=== PATIENT | female | born 1950 | race Caucasian/White ===

== ENCOUNTER 2020-03-19 22:52 | Inpatient (IN) | payer OTHER, MEDICARE ==
[~2020-03-19] VITALS: Ht 170.2 cm; Wt 45.4 kg
[2020-03-19 23:38] VITALS: BP 92/64
[2020-03-19] MEDS ORDERED: NACL 0.9% 1,000 ML IV SCH (23:55)
[2020-03-19] MEDS ORDERED: cefTRIAXone 1,000 MG in DEXT 5% MINI-BAG PLUS 50 ML IV ONE (23:55)
[2020-03-20] MEDS ORDERED: cefTRIAXone 1,000 MG VIAL ONE (01:30)
[2020-03-20] MEDS ORDERED: KETOROLAC 30 MG/ML VIAL ONE (01:51)
[2020-03-20 01:54] LABS: BASOPHILS % (AUTO) 0.2 % (0.0-2.0); EOSINOPHILS % (AUTO) 0.2 % (0.0-4.0); HEMATOCRIT 40.5 % (36-48); HEMOGLOBIN 13.2 g/dL (12.0-16.0); LYMPHOCYTES # (AUTO) 0.5 K/uL (2.5-16.5); LYMPHOCYTES % (AUTO) 2.7 % (20.5-51.1); MEAN CORPUSCULAR HEMOGLOBIN 26 pg (27-31); MEAN CORPUSCULAR HGB CONC 33 g/dL (33-37); MEAN CORPUSCULAR VOLUME 80.7 fL (80-94); MONOCYTES # (AUTO) 0.7 K/uL (0.8-1.0); MONOCYTES % (AUTO) 3.6 % (1.7-9.3); NEUTROPHILS # (AUTO) 18.8 K/uL (1.8-7.7); NEUTROPHILS % (AUTO) 93.3 % (42.2-75.2); PLATELET COUNT (AUTO) 116 K/uL (140-450); RED BLOOD CELL COUNT(AUTO) 5.02 MIL/uL (4.20-5.40); RED CELL DISTRIBUTION WIDTH 20.7 % (11.6-13.7); WHITE BLOOD COUNT (AUTO) 20.2 K/uL (4.8-10.8)
[2020-03-20] MEDS ORDERED: KETOROLAC 30 MG/ML VIAL IVP ONE (01:55)
[2020-03-20 02:29] LABS: ALBUMIN 1.3 g/dL (3.4-5.0); ANION GAP 12.4 (8-16); CARBON DIOXIDE 21.9 mmol/L (21-32); CREATININE 1.1 mg/dL (0.6-1.3); POTASSIUM 4.3 mmol/L (3.5-5.1); TOTAL BILIRUBIN 1.3 mg/dL (0.0-1.0)
[2020-03-20 03:13] LABS: APPEARANCE,URINE CLEAR (CLEAR); BILIRUBIN,URINE 1+ (NEGATIVE); BLOOD, URINE NEGATIVE (NEGATIVE); COLOR,URINE YELLOW (YELLOW); LEUKOCYTE ESTERASE ,URINE NEGATIVE (NEGATIVE); NITRITE, URINE NEGATIVE (NEGATIVE); PH,URINE 5.5 (5.0-9.0); UGLUCOSE NEGATIVE (NEGATIVE)
[2020-03-20] MEDS ORDERED: NACL 0.9% 1,000 ML IV ONE (03:50)
[2020-03-20] MEDS ORDERED: MORPHINE SULFATE 4 MG/ML SYR IVP ONE (03:50)
[2020-03-20] MEDS ORDERED: LORazepam 2 MG/ML VIAL IVP PRN (04:55)
[2020-03-20] MEDS ORDERED: ACETAMINOPHEN 325 MG TAB PO PRN (04:55)
[2020-03-20] MEDS ORDERED: ONDANSETRON 4 MG/2 ML VIAL IVP PRN (04:55)
[2020-03-20] MEDS ORDERED: cefTRIAXone 500 MG VIAL ONE (06:26)
[2020-03-20] MEDS: NACL 0.9% 1,000 ML IV SCH ×2 (06:50→17:16)
[2020-03-20 11:00] VITALS: BP 88/55
[2020-03-20] MEDS: HYDROcodone/APAP 5/325 MG 1 TAB TAB PO PRN ×2 (11:04→20:31)
[2020-03-20] MEDS: MORPHINE SULFATE 2 MG/ML SYR IVP PRN (11:41)
[2020-03-20 16:00] VITALS: BP 88/55
[2020-03-20] MEDS: AZITHROMYCIN 500 MG in DEXTROSE 5% 250 ML IV SCH (18:27)
[2020-03-20 20:00] VITALS: BP 123/67
[2020-03-20] MEDS ORDERED: AZITHROMYCIN 500 MG in DEXTROSE 5% 250 ML IV SCH (21:00)
[2020-03-21] MEDS: MORPHINE SULFATE 2 MG/ML SYR IVP PRN (00:39)
[2020-03-21] MEDS: NACL 0.9% 1,000 ML IV SCH ×2 (06:24→18:24)
[2020-03-21 08:00] VITALS: BP 100/58
[2020-03-21 08:41] LABS: BASOPHILS % (AUTO) 0.2 % (0.0-2.0); EOSINOPHILS % (AUTO) 0.1 % (0.0-4.0); HEMATOCRIT 41.6 % (36-48); HEMOGLOBIN 13.1 g/dL (12.0-16.0); LYMPHOCYTES % (AUTO) 3.9 % (20.5-51.1); MEAN CORPUSCULAR HEMOGLOBIN 26 pg (27-31); MEAN CORPUSCULAR HGB CONC 31 g/dL (33-37); MEAN CORPUSCULAR VOLUME 83.3 fL (80-94); MONOCYTES % (AUTO) 4.3 % (1.7-9.3); NEUTROPHILS # (AUTO) 22.2 K/uL (1.8-7.7); NEUTROPHILS % (AUTO) 91.5 % (42.2-75.2); PLATELET COUNT (AUTO) 152 K/uL (140-450); RED BLOOD CELL COUNT(AUTO) 4.99 MIL/uL (4.20-5.40); RED CELL DISTRIBUTION WIDTH 21.4 % (11.6-13.7); WHITE BLOOD COUNT (AUTO) 24.3 K/uL (4.8-10.8)
[2020-03-21] MEDS: ASPIRIN 81 MG TAB.CHEW PO SCH (09:00)
[2020-03-21 09:13] LABS: ALBUMIN 1.1 g/dL (3.4-5.0); ANION GAP 18.6 (8-16); CARBON DIOXIDE 15.6 mmol/L (21-32); MAGNESIUM 2.3 mg/dL (1.8-2.4); POTASSIUM 5.2 mmol/L (3.5-5.1); TOTAL BILIRUBIN 0.7 mg/dL (0.0-1.0)
[2020-03-21] MEDS ORDERED: NALOXONE 0.4 MG/ML VIAL ONE (10:39)
[2020-03-21] MEDS ORDERED: NACL 0.9% 500 ML IV ONE (10:40)
[2020-03-21] MEDS ORDERED: NALOXONE 0.4 MG/ML VIAL IVP SCH (10:45)
[2020-03-21 16:00] VITALS: BP 75/45
[2020-03-21] MEDS: AZITHROMYCIN 500 MG in DEXTROSE 5% 250 ML IV SCH (18:23)
[2020-03-21 20:00] VITALS: BP 68/32
[2020-03-21] MEDS ORDERED: NACL 0.9% 1,000 ML IV SCH (21:30)
[2020-03-21 22:00] VITALS: BP_SYST 114; BP_SYST 88; BP_DIAS 27; BP_DIAS 32
[2020-03-21] MEDS ORDERED: VANCOMYCIN PER PHARMACY MC PRN (22:35)
[2020-03-21 23:00] VITALS: BP 92/28
[2020-03-21] MEDS ORDERED: VANCOMYCIN 1GM/DEXT 5% PREMIX 200 ML IV ONE (23:00)
[2020-03-21] MEDS ORDERED: NOREPINEPHRINE 4 MG/4 ML VIAL IV ONE (23:16)
[2020-03-21] MEDS: NOREPINEPHRINE 4 MG in DEXTROSE 5% 250 ML IV PRN (23:30)
[2020-03-22] VITALS (9 sets, daily range): BP systolic 101–122; BP diastolic 27–82
[2020-03-22] MEDS ORDERED: VANCOMYCIN 1,000 MG VIAL ONE (00:03)
[2020-03-22] MEDS ORDERED: PIPERACILLIN/TAZOBACTAM 3.375 GM in DEXTROSE 5% 50 ML IV SCH (05:00)
[2020-03-22] MEDS ORDERED: PIPERACILLIN/TAZOBACTAM 3.375 GM VIAL IV ONE (06:06)
[2020-03-22] MEDS: NACL 0.9% 1,000 ML IV SCH (06:27)
[2020-03-22] MEDS ORDERED: NOREPINEPHRINE 4 MG/4 ML VIAL IV ONE (08:01)
[2020-03-22] MEDS: NOREPINEPHRINE 4 MG in DEXTROSE 5% 250 ML IV PRN (08:06)
[2020-03-22] MEDS: ASPIRIN 81 MG TAB.CHEW PO SCH (09:00)
[2020-03-22] MEDS ORDERED: VANCOMYCIN 500 MG in DEXTROSE 5% 100 ML IV SCH (21:00)
== END 2020-03-22 10:12 | DRG 720 ==
LOC: MED 22:52 → MMU 03-20 04:55 → MTU 03-20 12:41 → MMU 03-22 06:34
PROVIDERS: ADMIT Hospitalist; ATTEND Hospitalist
PROC: 5A12012 Performance of Cardiac Output, Single, Manual (ICD-10-PCS; principal; 2020-03-20)
DX: A41.9 Sepsis, unspecified organism (principal); J18.9 Pneumonia, unspecified organism; D72.829 Elevated white blood cell count, unspecified; E87.1 Hypo-osmolality and hyponatremia; D69.6 Thrombocytopenia, unspecified; E86.0 Dehydration; Z85.05 Personal history of malignant neoplasm of liver; Z20.822 Contact with and (suspected) exposure to COVID-19; Z11.52 Encounter for screening for COVID-19
CPT/HCPCS: 36415; 70450; 71045; 71250; 80053; 80202; 81003; 83735; 83880; 84484; 85025; 87040; 87081; 87086; 93005; 96361; 96365; 96375; 99285; J0456; J0696; J1644; J1885; J2060; J2270; J2310; J2543; J3370; J3490; J7030; J7060; U0003